=== PATIENT | female | born 1960 | race Caucasian/White ===

== ENCOUNTER → 2022-04-25 | Outpatient (CLI) | payer OTHER, SELFPAY ==
--- NOTE | 2022-04-25 09:55 | RAD_ITS ---
STUDY: X-RAY - ABDOMEN/PELVIS REASON FOR EXAM: Female, 61 years old. Flank pain TECHNIQUE: Two AP supine views of the abdomen and pelvis. COMPARISON: None. FINDINGS: Normal visualized lung bases. There is an abundance of fecal material throughout the colon. There is no demonstrated free abdominal air. The visualized liver, spleen and kidneys are grossly normal in size and morphology. Normal soft tissue structures. Normal visualized osseous structures. RAD/Abdomen Single View IMPRESSION: No acute findings, retained stool Electronically Signed: Bart Thrasher MD at 13:36 EDT ,
== END | disposition home or self-care (01) ==
LOC: MTRAD 09:51
PROVIDERS: PCP Family Medicine; Referring Provider Urology; Visit Provider Urology
DX: N20.0 Calculus of kidney (principal)
CPT/HCPCS: 74018

== ENCOUNTER 2022-07-29 05:53 | Day surgery (SDC) | payer OTHER, SELFPAY ==
[2022-07-29] MEDS: Lactated Ringers 1,000 ML 15 ML IV (06:10)
[2022-07-29 06:22] VITALS: BP 133/68; PULSE 71; RESP 18; TEMP 36.2; O2SAT 98; BMI 23.3
[2022-07-29] MEDS: Cefazolin 2 GM in 0.9% Normal Saline 100 ML IV (07:35)
--- NOTE | 2022-07-29 07:36 | DCINST_ITS ---
Discharge Instructions Diet Discharge Diet: No restrictions Activity Discharge Activity: Return to Normal Activity May resume sexual activity in: No Restrictions Dressing / Incision Call your doctor if you observe: Fever of 101 or Higher, Inability to urinate and Inability to have a bowel movement Follow Up Care Please Follow Up With: Tami Gandhi MD When: 2-3 weeks in the office Test Results: Test results from this visit will be discussed in further detail at your follow- up appointment, if applicable. Discharge Plan Admission Attending Provider: Tami Gandhi Primary Care Provider: Slade Carnes Discharge Orders/Prescriptions Prescriptions: New oxycodone-acetaminophen [oxycodone-acetaminophen] 5-325 mg tablet 2 tab PO Q8H PRN PRN (Reason: Pain) 3 Days Qty: 10 0RF cephalexin [cephalexin] 500 mg capsule 500 mg PO Q12 3 Days Qty: 6 0RF Continued pediatric multivitamin Tablet,Chewable 1 tab PO DAILY diphenhydramine-acetaminophen 25-500 mg-mg/mL Solution 25 ml PO QHS PRN PRN (Reason: Sleep) melatonin 5 mg Tablet 5 mg PO QHS PRN PRN (Reason: Sleep) cholecalciferol (vitamin D3) [Vitamin D3] 125 mcg (5,000 unit) Tablet 125 mcg PO MOWEFR turmeric 400 mg Capsule 400 mg PO QODAY Referrals / Follow Up: Slade Carnes MD [Primary Care Provider] - Disposition Disposition (needs filled in before D/C Order can be placed): Home, Self Care
--- NOTE | 2022-07-29 07:39 | OP.PCM_ITS ---
Report of Operation Date of Procedure: 07/29/22 Pre-Operative Diagnosis: left renal stone, bladder wall thickening (abnormal im aging organs) Post-Operative Diagnosis: same Surgery/Procedure Performed:: cystoscopy with left renal extracorporal shockwave lithotripsy Description of Surgical Findings:: Surgeon: Tami Gandhi Type of Anesthesia: General Description of Procedure: The patient is a 61-year-old female with a 5 mm left renal stone and bladder wall thickening seen on CT. She presents for evaluation of the bladder with definitive management of her left renal stone. Informed consent was obtained. The patient was taken to the operating room and placed on the operating room table. Anesthesia monitored the head, neck, airway, IV access and vital signs throughout the case. Once anesthesia was appropriate ministered, the patient was placed into dorsolithotomy position was prepped and draped in usual sterile fashion. The cystoscope was then inserted through the urethra under direct visualization into the urinary bladder. The bladder and urethral mucosa were found to be within normal limits. There is no evidence of erythema, mass, foreign body. At this time the patient's bladder was emptied and she was repositioned into a supine position. The left renal calculus was identified and using the lithotripter, 3000 shocks were applied. The stone appeared to be well fragmented and was no longer visible at the conclusion of the case. The patient was awakened and taken to the recovery room in good condition. There were no complications during this procedure. Grafts/Implants Used: none Complications none Admit VTE Documentation VTE Present on Admission: Yes VTE Mechan Device Prophylaxis: SCD's VTE Pharm Prophylaxis ordered?: No
[2022-07-29 08:43] VITALS: BP 133/68; BP 159/78; PULSE 82; RESP 18; TEMP 36.2; O2SAT 100
[2022-07-29 08:45] VITALS: BP 133/68; BP 161/77; PULSE 78; RESP 16; O2SAT 97
[2022-07-29 09:00] VITALS: BP 133/68; BP 172/93; PULSE 80; RESP 18; O2SAT 99
[2022-07-29 09:15] VITALS: BP 133/68; BP 148/68; PULSE 74; RESP 18; TEMP 36.1; O2SAT 99
[2022-07-29 09:43] VITALS: BP 133/68; BP 136/74; PULSE 84; RESP 16; TEMP 36.2; O2SAT 98
== END 2022-07-29 10:08 | disposition home or self-care (01) ==
LOC: SDC 05:54 → AC 05:54
PROVIDERS: PCP Family Medicine; Referring Provider Urology; Visit Provider Urology
PROC: (CPT 50590; principal; 2022-07-29 07:20)
DX: N20.0 Calculus of kidney (principal)
CPT/HCPCS: 50590; 00873; J7120; J2405

== ENCOUNTER → 2022-08-26 | Outpatient (CLI) | payer OTHER, SELFPAY ==
--- NOTE | 2022-08-26 09:31 | RAD_ITS ---
EXAM: XR ABDOMEN, 1 VIEW CLINICAL INDICATION: KUB- RENAL CALC. TECHNIQUE: Frontal supine view of the abdomen/pelvis. This report was created using [employer] report generation technology. COMPARISON: None. FINDINGS: LOWER THORAX: No acute pathology. GASTROINTESTINAL TRACT: Unremarkable. Non-obstructive. No bowel or stomach distention. ORGANS: Unremarkable as visualized. No organomegaly. No abnormal calcifications. BONES/JOINTS: No acute pathology. SOFT TISSUES: No acute pathology. RAD/Abdomen Single View IMPRESSION: Non-obstructive bowel gas pattern. Electronically Signed: Ruben Alvarez MD at 20:50 EDT ,
== END | disposition home or self-care (01) ==
LOC: MTRAD 09:29
PROVIDERS: PCP Family Medicine; Referring Provider Urology; Visit Provider Urology
DX: N20.0 Calculus of kidney (principal)
CPT/HCPCS: 74018

== ENCOUNTER → 2025-07-08 | Outpatient (CLI) | payer MEDICARE, SELFPAY ==
--- NOTE | 2025-07-08 09:55 | NEURO ---
NCS and/or EMG Patient Report Ordering Doctor: Tony Escudero DATE OF SERVICE: 07/08/25 Clinical Summary: 64 year old female patient with symptoms of numbness and pain in the right upper extremity, including the hand. She has a history of right carpal tunnel release surgery 30 years ago. Nerve Conduction Studies Summary: Nerve conduction studies were performed in the right upper extremity. The right median-D2 SNAP distal latency was prolonged. The right ulnar-D5 SNAP distal latency was prolonged. The right median-APB CMAP distal latency was prolonged. Needle Examination Summary: Needle examination of select muscles of the bilateral upper extremities was normal. Impression: This is an abnormal study. 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 There is no electrodiagnostic evidence of a right cervical radiculopathy. Multi Select Codes Neurology Neurology Interp Codes: 57424-82 Musc test done w/n test comp (interp) (1) and 31958-55 Nrv cndj test 7-8 studies (interp)
== END | disposition home or self-care (01) ==
PROVIDERS: PCP Family Medicine; Referring Provider Orthopaedic Surgery; Visit Provider Orthopaedic Surgery
DX: M54.2 Cervicalgia (principal)
CPT/HCPCS: 95886; 95910